=== PATIENT | female | born 1945 | race Caucasian/White ===

== ENCOUNTER 2019-04-05 09:33 | Outpatient (CLI) | payer MEDICARE, BC ==
--- NOTE | 2019-04-05 12:10 | MRI ---
MRI CERVICAL SPINE WITHOUT CONTRAST: Date: 04/05/2019 INDICATION: Cervical stenosis. Neck pain with upper extremity numbness. FINDINGS: Cervical vertebra maintain height and alignment. Degenerative changes are noted with anterior osteoph ytes. Degenerative disc changes seen throughout. C2-3 shows mild posterior spondylosis effacing the anterior subarachnoid space. No cord impingement. At C3-4, posterior disc bulge and spondylosis compress the anterior cord producing slight flattening of the cord. Left foraminal stenosis due to facet and uncinate hypertrophy. At C4-5, mild disc bulge and spondylosis abuts the anterior cord. No significant foraminal stenosis a pparent At C5-6, posterior disc bulge and spondylosis impinge on and mildly compress the anterior cord, sligh tly more prominent to the right of midline. Right foraminal encroachment secondary to disc osteophyt e complex and uncinate hypertrophy. At C6-7, disc bulge and spondylosis flatten the thecal sac and abut the anterior cord. Motion artifact degrades evaluation of the cord on the sagittal T2. No significant cord signal is see n on the axial T2 images. IMPRESSION: Posterior disc and spondylytic changes compress the cord, most prominent at C3-4, with flattening of the cord at this level. There is also cord compression at C4-5 and C5-6 as described above. POS: CHANDRIKA
--- NOTE | 2019-04-05 13:47 | MRI ---
MRI OF LUMBAR SPINE PERFORMED WITHOUT CONTRAST ENHANCEMENT: 04/05/19 HISTORY: Low back pain. COMPARISON: 12/13/13 exam. Vertebral bodies are normal in height. There is marked degenerative disc narrowing at L3-4. There is mild disc narrowing at L4-5. Generalized disc desiccation changes are seen. There is no significant p eriaortic adenopathy. The visualized portions of the kidneys appear unremarkable. Schmorl's node changes are seen involving the inferior end plate of L1 and inferior end plates of L2 and superior end plate of L3. T12-L1: Unremarkable. L1-2: Disc bulge, facet and ligamentous hypertrophic changes associated with borderline canal stenosi s. L2-3: Some borderline canal stenosis also seen at this level related to prominent facet changes. L3-4: Facet and ligamentous hypertrophic change and disc bulge are associated with a moderate degree of canal stenosis. There is somewhat asymmetric disc bulging off to the right associated with mild ri ght foraminal narrowing. L4-5: Canal shows mild stenosis with facet and ligamentous hypertrophic change. There is some mild bi lateral foraminal narrowing noted. L5-S1: Prominent degenerative facet changes are seen at this level. There is fairly marked left fora frank narrowing and no significant right sided foraminal stenosis. Areas of canal and foraminal stenosis as described above. No significant area of canal stenosis appe ars to be at L3-4 and foraminal narrowing in the left L5 foramen. POS: [facility]
== END 2019-04-05 09:34 | disposition home or self-care (01) ==
LOC: TBSIIMAG 09:33
PROVIDERS: ATTEND Anesthesiology Pain Medicine
DX: M48.02 Spinal stenosis, cervical region (principal); M48.062 Spinal stenosis, lumbar region with neurogenic claudication; G95.20 Unspecified cord compression
CPT/HCPCS: 72141; 72148

== ENCOUNTER 2019-06-04 12:29 | Outpatient (CLI) | payer MEDICARE, BC ==
--- NOTE | 2019-06-04 14:26 | MRI ---
Exam: MRI thoracic spine without contrast HISTORY: Low back pain and neck pain with hand numbness. COMPARISON: None FINDINGS: Mild loss of vertebral body height at T12 with endplate changes. No significant STIR hyperi ntensity to suggest an acute process. Remaining thoracic vertebral body heights are maintained. No fracture. No significant T1 hyperintensity to suggest ligamentous injury or vertebral body edema Appropriate signal intensity of the visualized mediastinum, lung parenchyma, paraspinal muscles and solid organs The thoracic cord has a normal size and signal intensity. No cord malacia, cord expansion Conus medullaris terminates at the mid L1 level. T1-T2: No significant central canal stenosis. Neural foramina are patent T2-T3: No significant central canal stenosis or significant neural foraminal narrowing T3-T4: Central/right paracentral disc bulge. Mild central canal stenosis. No significant significant neural foraminal narrowing T4-T5: No significant central canal stenosis or significant neural foraminal narrowing T5-T6: No significant central canal stenosis or significant neural foraminal narrowing T6-T7: No significant central canal stenosis or significant neural foraminal narrowing T7-T8: Small left paracentral disc bulge. No significant central canal stenosis or significant neural foraminal narrowing T8-T9, T9-T10, T10-T7: No significant central canal stenosis or significant neural foraminal narrowin g T11-T12: Minimal broad-based disc bulge. No significant central canal stenosis or significant neural foraminal narrowing. Impression: Mild degenerative changes without significant central canal stenosis or significant neura l foraminal narrowing. Transcribed Date/Time: 06/04/2019 3:09 PM
== END 2019-06-04 12:30 | disposition home or self-care (01) ==
LOC: TBSIIMAG 12:29
PROVIDERS: ATTEND Neurological Surgery
DX: M54.16 Radiculopathy, lumbar region (principal); G95.9 Disease of spinal cord, unspecified; R32 Unspecified urinary incontinence; M47.814 Spondylosis without myelopathy or radiculopathy, thoracic region
CPT/HCPCS: 72146

== ENCOUNTER 2019-08-23 06:18 | Outpatient (CLI) | payer MEDICARE, BC, OTHER ==
[2019-08-24 12:14] LABS: SARS-CoV-2 MS2 Positive; SARS-CoV-2 N Gene Negative; SARS-CoV-2 S Gene Negative; SARS-CoV-2 orf1ab Negative
== END 2019-08-23 06:19 | disposition home or self-care (01) ==
LOC: LABBT 06:18
PROVIDERS: ATTEND Neurological Surgery
DX: Z01.812 Encounter for preprocedural laboratory examination (principal); Z11.59 Encounter for screening for other viral diseases; M54.12 Radiculopathy, cervical region; G56.02 Carpal tunnel syndrome, left upper limb
CPT/HCPCS: 87635; U0003

== ENCOUNTER 2019-08-28 07:46 | Day surgery (SDC) | payer MEDICARE, BC ==
[2019-08-21 11:54] VITALS: BMI 38.6
--- NOTE | 2019-08-27 14:57 | HP ---
HISTORY OF PRESENT ILLNESS: Ms. José is a 74-year-old woman who is known to our practice from prior lumbar decompression who is referred back to us for myelopathy with identified stenosis and increasing bilateral lower extremity radicular pains that fit both L4-L5 pattern. She has been seeing Dr. Isbell. He has been attempting injections and also refilling Myton for low back, which helps a great deal. She reports progressive hand weakness and greatly increased frequency of dropping items off both hands. She has sharp pains in the 1st and 2nd digit of the left hand, has no radicular pain to speak of otherwise. She reports trouble with imbalance when walking. She has MRI of the cervical spine, which reveals severe central canal stenosis and flattening of the cervical cord at C3-4, which is the most likely contributor to her myelopathic symptoms. Additionally, there is concern for possible carpal tunnel syndrome. Exam is deferred secondary to coronavirus visit. PAST MEDICAL HISTORY: Significant for chronic pain syndrome, hypercholesterolemia, anemia, osteoarthritis, seasonal allergies, hypertension. SURGICAL HISTORY: Cholecystectomy, appendectomy, hysterectomy, bladder lift, carpal tunnel release, knee replacement, unspecified laterality and lumbar decompression. ALLERGIES: NO KNOWN DRUG ALLERGIES. CURRENT MEDICATIONS: Diclofenac, Myton, folate, B12. ASSESSMENT: Left carpal tunnel syndrome and cervical myelopathy. PLAN: Dr. Velasquez met with the patient, reviewed imaging, and advocated for C3-C4 ACDF as well as a left carpal tunnel release. He explained to the patient the risks, benefits, and alternatives of the procedure. The patient expressed understanding and elected to move forward with surgery as discussed. I do believe the patient is mentally competent and capable of making medical decisions for herself. We will move forward with surgery as planned. Job ID: [id number]
[2019-08-28] MEDS ORDERED: Fentanyl 100 MCG/2 ML VIAL ONE ×3 (08:56→12:04)
[2019-08-28] MEDS ORDERED: Propofol 500 MG/50 ML VIAL ONE (09:32)
[2019-08-28] MEDS ORDERED: Lidocaine 1% w/Epinephrine 1:100K 20 ML VIAL ONE (10:16)
[2019-08-28] MEDS ORDERED: Lidocaine 1% PF 5 ML VIAL ONE (10:36)
[2019-08-28] MEDS ORDERED: Dexamethasone 20 MG/5 ML VIAL ONE (10:36)
[2019-08-28] MEDS ORDERED: Ketorolac Tromethamine 30 MG/ML VIAL ONE (10:36)
[2019-08-28] MEDS ORDERED: PROPOFOL 200 MG/20 ML VIAL ONE (10:36)
[2019-08-28] MEDS ORDERED: PHENYLEPHRINE-NS 100 MCG/ML 10 ML SYRINGE ONE (10:36)
[2019-08-28] MEDS ORDERED: Ondansetron PF 4 MG/2 ML Vial ONE ×3 (10:36→11:11)
[2019-08-28] MEDS ORDERED: Rocuronium Bromide 10 MG/ML (10ML VIAL) ONE (10:36)
[2019-08-28] MEDS ORDERED: EPHEDRINE 25 MG/5 ML SYRINGE ONE (10:36)
[2019-08-28] MEDS ORDERED: Glycopyrrolate 0.2 MG/ML 5 ML SYRINGE ONE (10:36)
[2019-08-28] MEDS ORDERED: Labetalol HCl 100 MG/20 ML VIAL ONE (10:36)
[2019-08-28] MEDS ORDERED: Bupivacaine HCl 0.5%/Epinephrine 1:200,000/PF 30 ml Vial ONE (11:08)
--- NOTE | 2019-08-28 14:03 | OP ---
DATE OF PROCEDURE: 08/28/2019 RELINER: Hung Santo PA-C INDICATION: Pain. DIAGNOSES: Cervical radiculopathy and left carpal tunnel syndrome, recurrent. ANESTHESIA: General. PROCEDURE PERFORMED: Anterior cervical diskectomy and fusion, C3-C4 and reoperation, redo left carpal tunnel release. DESCRIPTION OF PROCEDURE: The patient was brought into the operating room and placed under general anesthesia. She was placed on table in supine position. A transverse incision was planned over the lateral aspect of the neck on the right. After prepping and draping and after an appropriate preoperative pause, the incision was created. The underlying platysma muscle was identified and incised. A blunt tissue plane anterior to the sternocleidomastoid muscle was used to gain access to the prevertebral space. Self-retaining retractors were placed and a C-arm image obtained to confirm the appropriate location. An annulotomy was performed in the C3-C4 disk space. All disk material as well as anterior and posterior osteophytes were removed. After completing the decompression, a 7-mm lordotic PEEK cage packed with allograft and autograft material was placed within the interbody space. An anterior cervical plate was then fashioned to the front of spine and secured with a total of 4 fixed screws. Midline and lateral structures were inspected and found to be free from significant trauma. The wound was irrigated. Hemostasis was maintained throughout. The wound was then closed in anatomic layers, and a pressure dressing was applied. There were no known procedural complications. We then redraped the patient for a left carpal tunnel release. The patient's left arm was prepped and draped up to the level of the axilla. After prepping and draping and after an appropriate preoperative pause, a linear incision was placed in line with the crease in the wrist in line with the long axis of the 4th digit. The area was infiltrated with 1 mL of lidocaine with epinephrine. After an appropriate preoperative pause, the incision was created. A self-retaining retractor was placed. The carpal tunnel ligament including scar tissue from the patient's prior decompression was identified. An adhesiolysis was performed over the elements of the carpal tunnel. Additional carpal tunnel ligament was removed until the elements of the carpal tunnel were well decompressed. The wound was then irrigated. Hemostasis was maintained throughout. The wound was then closed in anatomic layers, and a pressure dressing was applied. There were no known procedural complications. Job ID: [id number]
== END 2019-08-28 15:25 | disposition home or self-care (01) ==
LOC: SDC 07:46
PROVIDERS: ATTEND Neurological Surgery
PROC: 01N50ZZ Release Median Nerve, Open Approach (ICD-10-PCS; principal; 2019-08-28)
PROC: 0RG10A0 Fusion of Cervical Vertebral Joint with Interbody Fusion Device, Anterior Approach, Anterior Column, Open Approach (ICD-10-PCS; 2019-08-28)
PROC: 0RT30ZZ Resection of Cervical Vertebral Disc, Open Approach (ICD-10-PCS; 2019-08-28)
DX: M47.22 Other spondylosis with radiculopathy, cervical region (principal); M47.12 Other spondylosis with myelopathy, cervical region; M48.02 Spinal stenosis, cervical region; G56.02 Carpal tunnel syndrome, left upper limb; I10 Essential (primary) hypertension; E78.5 Hyperlipidemia, unspecified; K21.9 Gastro-esophageal reflux disease without esophagitis; N81.6 Rectocele; N81.10 Cystocele, unspecified; Z96.651 Presence of right artificial knee joint; Z87.891 Personal history of nicotine dependence; M47.812 Spondylosis without myelopathy or radiculopathy, cervical region; L40.50 Arthropathic psoriasis, unspecified; G89.4 Chronic pain syndrome; E78.00 Pure hypercholesterolemia, unspecified; J30.2 Other seasonal allergic rhinitis; Z79.82 Long term (current) use of aspirin; Z79.899 Other long term (current) drug therapy; Z91.018 Allergy to other foods
CPT/HCPCS: 20930; 20936; 22551; 22853; 64721; 76000; 93005; C1713 ×2; C1776 ×2; 93010; J0670; J0690; J1100; J1885; J2405; J2704; J3010

== ENCOUNTER 2019-12-12 10:43 | Outpatient (CLI) | payer MEDICARE, BC ==
--- NOTE | 2019-12-12 12:14 | RAD ---
Lumbar spine 5 views: 12/12/2019 COMPARISON: 12/18/2013 HISTORY: Chronic back pain, incontinence FINDINGS: There is new degenerative levoscoliosis within the lumbar spine centered at the L2 level. There is new right lateral osteophyte formation at L2-3. Multilevel lower lumbar spine facet hypertrophic change noted, most prominent at L3-4, L4-5, and L5-S 1. A mild inferior endplate area of convexity noted at the L1 level which suggests prior fracture, simil ar when compared to a lumbar spine MRI performed 04/05/2019. On the neutral lateral exam there is mild retrolisthesis at L2-3 measuring approximately 5 mm which i s similar on the flexion and extension views. No acute fracture is seen. IMPRESSION: Multilevel degenerative change as detailed above.
== END 2019-12-12 10:44 | disposition home or self-care (01) ==
LOC: BICRAD 10:43
PROVIDERS: ATTEND Anesthesiology Pain Medicine
DX: M48.062 Spinal stenosis, lumbar region with neurogenic claudication (principal); L40.50 Arthropathic psoriasis, unspecified; M47.816 Spondylosis without myelopathy or radiculopathy, lumbar region
CPT/HCPCS: 72100

== ENCOUNTER 2020-03-06 07:18 | Outpatient (CLI) | payer MEDICARE, BC ==
[2020-03-06 22:14] LABS: SARS-CoV-2 PCR by NAA Not Detected (NotDetected)
== END 2020-03-06 07:19 | disposition home or self-care (01) ==
LOC: LABBT 07:18
PROVIDERS: ATTEND Neurological Surgery
DX: M54.16 Radiculopathy, lumbar region (principal); Z20.822 Contact with and (suspected) exposure to COVID-19; Z51.81 Encounter for therapeutic drug level monitoring; Z79.899 Other long term (current) drug therapy
CPT/HCPCS: 80307; 93005; G0483; U0003; U0005; 87635; 93010

== ENCOUNTER 2020-03-11 05:30 | Day surgery (SDC) | payer MEDICARE, BC ==
[2020-03-09 13:01] VITALS: BMI 39.8
--- NOTE | 2020-03-10 10:25 | HP ---
HISTORY OF PRESENT ILLNESS: Ms. José is a 74-year-old woman who is known to us from prior evaluations for cervical radiculopathy as well as peripheral nerve problems, who returns now with worsening lower back pain and what sounds like urge urinary incontinence when walking exclusively. She does not note this problem when lying or sitting down. Her pains are to her bilateral lower extremities and fit very well in L5 pattern. This is also associated with tingling and paresthesias. She has attempted epidural steroid injections with little effect. Most recently, she was on Medrol 8 mg once a day. This helped a great deal in her pains and surprisingly her incontinence as well. Urology and Rheumatology have evaluated her recently and feel there is no inherent problem that has led to her incontinence and for this reason, she was referred to us. She describes no weakness and ambulates mostly well other than radicular pains that become severe as she walks further. MRI from [facility] of the thoracic spine shows minimal disease and no concern. As related to the symptoms she expresses, lumbar spine, however, reveals moderate diffuse degenerative disk disease, though minimal central canal stenosis at any location. She does have moderate lateral recess stenosis at L4-L5 as well as severe foraminal stenosis at L5 bilaterally, which honestly could explain her radicular symptoms. PAST MEDICAL HISTORY: Significant for hypertension, hypercholesterolemia, diabetes, gastroesophageal reflux disease, osteoarthritis, cystocele and rectocele, obstructive sleep apnea, interstitial cystitis. PAST SURGICAL HISTORY: Tonsillectomy, cholecystectomy, unspecified right knee hysterectomy, bladder lift, carpal tunnel release bilaterally, lumbar decompression, ACDF. CURRENT MEDICATIONS: 1. Vitamin D. 2. Folate. 3. Vitamin B. 4. Magnesium. 5. Amlodipine. 6. Tizanidine. 7. [place]. ALLERGIES: NO KNOWN DRUG ALLERGIES. PHYSICAL EXAMINATION: Deferred for telehealth visit. ASSESSMENT: Lumbar spinal stenosis and radiculopathy with urge incontinence. PLAN: Dr. Velasquez met with the patient, reviewed imaging, and advocated for an L4-L5 decompression with bilateral L5 foraminotomies. He explained to the patient the risks, benefits, and alternatives to the procedure. The patient expressed understanding and elected to move forward. I do believe she is mentally competent and capable of making medical decisions for herself. We will move forward with surgery as planned. We did discuss with her that the urinary incontinence may just be a positive benefit if this is related to pain and muscle spasm, but there is no guarantee that this is going to make a difference. She also expresses understanding here. Job ID: [id number]
[2020-03-11] MEDS ORDERED: Bupivacaine PF 0.5% 30 ML VIAL ONE (06:11)
[2020-03-11] MEDS ORDERED: EPINEPHrine 1 MG/ML AMP ONE (06:11)
[2020-03-11] MEDS ORDERED: Thrombin 5000 UNITS/5 ML VIAL ONE (06:11)
[2020-03-11] MEDS ORDERED: Fentanyl 100 MCG/2 ML VIAL ONE ×3 (06:47→08:56)
[2020-03-11] MEDS ORDERED: Propofol 1,000 MG/100 ML VIAL IV ONE (06:47)
[2020-03-11] MEDS ORDERED: SUGAMMADEX SODIUM 200 MG/2 ML VIAL ONE (07:46)
--- NOTE | 2020-03-11 08:24 | OP ---
DATE OF PROCEDURE: 03/11/2020 GEAR CUTTING MACHINE SET UP OPERATOR: Hung Santo PA-C INDICATION: Pain. DIAGNOSIS: Lumbar radiculopathy. PROCEDURES PERFORMED: Bilateral L5 foraminotomy, bilateral L5 lateral recess decompression. ANESTHESIA: General. DESCRIPTION OF PROCEDURE: The patient was brought into the operating room and placed under general anesthesia. She was flipped from the supine to prone position on the operating room table. A linear incision was planned over the L5 segment. After prepping and draping and after an appropriate preoperative pause, the incision was created. The underlying muscles were swept away from midline and a self-retaining retractor was placed. After confirming the appropriate level with C-arm fluoroscopy, bilateral L5 laminectomies were performed. A foraminotomy was performed of the exiting L5 nerve roots bilaterally. At the completion of procedure, the lateral recess inferior aspect of decompressed as was the exiting L5 nerve root bilaterally. After completing the decompression, the wound was irrigated. Hemostasis was maintained throughout. The wound was then closed in anatomic layers, and a pressure dressing was applied. There were no known procedural complications. Job ID: [id number]
[2020-03-11] MEDS ORDERED: Morphine 4 MG/ML VIAL ONE (08:36)
[2020-03-11] MEDS ORDERED: Dexamethasone 20 MG/5 ML VIAL ONE (08:58)
[2020-03-11] MEDS ORDERED: Ondansetron PF 4 MG/2 ML Vial ONE (08:58)
[2020-03-11] MEDS ORDERED: ePHEDrine 50 MG/ML VIAL ONE (08:58)
[2020-03-11] MEDS ORDERED: PROPOFOL 200 MG/20 ML VIAL ONE (08:58)
[2020-03-11] MEDS ORDERED: Rocuronium Bromide 10 MG/ML (10ML VIAL) ONE (08:58)
[2020-03-11] MEDS ORDERED: Lidocaine 1% PF 5 ML VIAL ONE (08:58)
[2020-03-11] MEDS ORDERED: Sodium Chloride 0.9% 10 ML ONE (11:22)
[2020-03-11 13:50] LABS: Actual Bicarbonate (HCO3v) 27 mEq/L (22-28); Analyzer IN Cardio OR; Base Excess 0.4 mEq/L (-2.0 to +3.0); Calcium, Ionized (venous) 1.22 mmol/L (1.16-1.32); Chloride (VBG) 104 mmol/L (98-106); Hemoglobin (Hb) 13.4 g/dL (11.7-16.1); Sodium 138.7 mmol/L (133-146); pH (venous) 7.35 (7.32-7.43)
== END 2020-03-11 12:15 | disposition home or self-care (01) ==
LOC: SDC 05:30
PROVIDERS: ATTEND Neurological Surgery
PROC: 01NB0ZZ Release Lumbar Nerve, Open Approach (ICD-10-PCS; principal; 2020-03-11)
DX: M54.16 Radiculopathy, lumbar region (principal); M54.12 Radiculopathy, cervical region; M48.061 Spinal stenosis, lumbar region without neurogenic claudication; N39.41 Urge incontinence; I10 Essential (primary) hypertension; E78.00 Pure hypercholesterolemia, unspecified; E11.9 Type 2 diabetes mellitus without complications; K21.9 Gastro-esophageal reflux disease without esophagitis; M19.90 Unspecified osteoarthritis, unspecified site; G47.33 Obstructive sleep apnea (adult) (pediatric); Z79.899 Other long term (current) drug therapy; Z87.891 Personal history of nicotine dependence; Z91.018 Allergy to other foods
CPT/HCPCS: 76000; 82805; J0171; J0690; J1100; J2270; J2405; J2704; J3010; J3490; S0020

== ENCOUNTER 2020-09-08 12:45 | Outpatient (CLI) | payer MEDICARE, BC | END 2020-09-08 12:46 | disposition home or self-care (01) | LOC: TBSIIMAG 12:45 | PROVIDERS: ATTEND Neurological Surgery | DX: M54.5 Low back pain (principal); R29.898 Other symptoms and signs involving the musculoskeletal system; M47.816 Spondylosis without myelopathy or radiculopathy, lumbar region; M47.812 Spondylosis without myelopathy or radiculopathy, cervical region; E04.1 Nontoxic single thyroid nodule; Z98.890 Other specified postprocedural states | CPT/HCPCS: 72100; 72141 ==

== ENCOUNTER 2021-03-25 10:54 | Outpatient (CLI) | payer MEDICARE, BC ==
[~2021-03-25 10:54] MED LIST: Iopamidol-370 76% 500 ML 1 ML ONE
== END 2021-03-25 10:55 | disposition home or self-care (01) ==
LOC: BICCT 10:54
PROVIDERS: ATTEND Urology
DX: E27.8 Other specified disorders of adrenal gland (principal); D35.02 Benign neoplasm of left adrenal gland; N20.0 Calculus of kidney
CPT/HCPCS: 74170; 82565

== ENCOUNTER 2022-04-14 13:06 | Outpatient (CLI) | payer MEDICARE, BC | END 2022-04-14 13:07 | disposition home or self-care (01) | LOC: TBSIIMAG 13:06 | PROVIDERS: ATTEND Anesthesiology Pain Medicine | DX: M16.12 Unilateral primary osteoarthritis, left hip (principal); M77.9 Enthesopathy, unspecified; M70.62 Trochanteric bursitis, left hip; S76.012A Strain of muscle, fascia and tendon of left hip, initial encounter; S73.192A Other sprain of left hip, initial encounter ==

== ENCOUNTER 2022-05-19 10:15 | Outpatient (CLI) | payer MEDICARE, BC | END 2022-05-19 10:16 | disposition home or self-care (01) | LOC: TBSIIMAG 10:15 | PROVIDERS: ATTEND Family Medicine | DX: R51.9 Headache, unspecified (principal) | CPT/HCPCS: 70551 ==